=== PATIENT | female | born 1985 | race Two or more races ===

== ENCOUNTER 2016-09-14 04:18 | Emergency (ER) | payer OTHER ==
--- NOTE | ~2016-09-14 | CR72 ---
[facility] A Service of [facility] & [facility] RADIOLOGY TEXT RESULTS PATIENT: DENIS CHOWDHURY LOCATION: [facility] : 85 UNIT #: [id number] AGE: [address]: Sarah Mcknight APRN SEX: F ORDER DR: [id number] [facility] [address]. [place], [place] [address] [id number] MR#: [id number] Acc #: [id number] NAME: DENIS CHOWDHURY : 1985 SEX: F STUDY DATE/TIME: 09/14/2016 4:54 UNIT: [facility] ROOM: STUDY DESCRIPTION: CR Chest Single View Portable Attending Physician: Sarah Mcknight A.P.R.N. Ordering Physician: Sarah Mcknight A.P.R.N. Primary Care Physician: Primary Care Physician No MEDICAL IMAGING REPORT This report is preliminary unless electronic signature is present EXAM Portable chest INDICATION Cough and mid chest pain since Monday. FINDINGS A portable view of the chest was obtained. The heart size and vascularity are normal. The lungs are clear. The bones are unremarkable. IMPRESSION No active disease. Dictated by... Dave Gaston M.D. THIS IS AN ELECTRONICALLY VERIFIED REPORT Dave Gaston M.D. at 09/14/2016 2:21 PM RENO/gloria TD: 09/14/2016 06:50 JOB #: [id number] MEDICAL IMAGING REPORT Page 1 of 1 COPY
[2016-09-14 03:59] LABS: URINE SOURCE CLEAN CATCH
[2016-09-14 04:02] LABS: URINE APPEARANCE CLEAR; URINE BILIRUBIN NEG (NEG); URINE BLOOD NEG (NEG); URINE COLOR YELLOW; URINE GLUCOSE NEG (NEG); URINE KETONE NEG (NEG); URINE LEUKOCYTE ESTERASE NEG (NEG); URINE NITRATE NEG (NEG); URINE PH 7.5 (5-8); URINE PROTEIN NEG (NEG); URINE SPECIFIC GRAVITY 1.002 (1.003-1.035); URINE UROBILINOGEN 0.2 MG/DL (NEG)
[2016-09-14 04:05] LABS: CULTURE INDICATED? NO
[2016-09-14 04:15] LABS: INFLUENZA A NEG (NEG); INFLUENZA B NEG (NEG)
[~2016-09-14 04:18] MED LIST: BENADRYL25 M3 PO; FAMOTIDINE PO
== END 2016-09-14 05:15 | disposition home or self-care (01) ==
LOC: CED 04:18
PROVIDERS: Nurse Practitioner
DX: J06.9 Acute upper respiratory infection, unspecified (principal)
CPT/HCPCS: 36415; 71010; 81003; 84703; 87651; 87804; 99283

== ENCOUNTER 2017-02-05 12:21 | Emergency (ER) | payer OTHER ==
[~2017-02-05] VITALS: Ht 160 cm; Wt 57.1 kg
== END 2017-02-05 13:35 | disposition home or self-care (01) ==
LOC: CFTX 12:21 → CED 12:21 → CFTX 13:30
DX: R59.0 Localized enlarged lymph nodes (principal)
CPT/HCPCS: 99283